=== PATIENT | male | born 1950 | race Caucasian/White ===

== ENCOUNTER → 2017-04-29 | Outpatient (CLI) | payer MEDICARE ==
[~2017-04-29] MED LIST: CETI10TA24 PO
[2017-04-29 09:13] LABS: ASPARTATE AMINO TRANSFERASE 18 U/L (15-37); BLOOD UREA NITROGEN 17 mg/dL (7-18)
== END | disposition home or self-care (01) ==
LOC: STAR 07:48
PROVIDERS: ATTEND Urology
DX: Z01.818 Encounter for other preprocedural examination (principal); C61 Malignant neoplasm of prostate
CPT/HCPCS: 36415; 80053; 81003; 85025; 87086; 93005

== ENCOUNTER 2017-05-07 05:46 | Inpatient (IN) | payer MEDICARE ==
[2017-04-29 08:13] VITALS: BP 137/80
[~2017-05-07] VITALS: Ht 177.8 cm; Wt 89.0 kg
[~2017-05-07 05:46] MED LIST changes: +FENTANYL PF 250 MCG/5ML ONE
[2017-05-07] MEDS ORDERED: LACTATED RINGERS 1,000 ML IV SCH (06:21)
[2017-05-07] MEDS ORDERED: KETAMINE 10 MG/ML, 20ML ONE (07:15)
[2017-05-07] MEDS ORDERED: MIDAZOLAM 1 MG/ML, 2ML ONE (07:15)
[2017-05-07] MEDS ORDERED: FENTANYL PF 250 MCG/5ML ONE (07:15)
[2017-05-07] MEDS ORDERED: BUPIVACAINE/PF-EPI 0.25% 1:200K ONE (07:17)
[2017-05-07] MEDS ORDERED: THROMBIN 5,000 UNIT VIAL TP ONE (07:17)
[2017-05-07] MEDS ORDERED: ALBUMIN HUMAN 5% 500 ML ONE (07:24)
[2017-05-07] MEDS ORDERED: GLYCOPYRROLATE 0.2MG/1ML ONE ×2 (07:33)
[2017-05-07] MEDS ORDERED: PHENYLEPHRINE 10 MG/ML ONE (07:33)
[2017-05-07] MEDS ORDERED: NEOSTIGMINE 1 MG/ML, 10ML ONE (07:33)
[2017-05-07] MEDS ORDERED: CEFAZOLIN 1,000 MG ONE ×2 (07:33)
[2017-05-07] MEDS ORDERED: ONDANSETRON 2MG/ML, 2ML ONE ×2 (07:33→15:02)
[2017-05-07] MEDS ORDERED: ESMOLOL 100 MG/10 ML ONE (07:33)
[2017-05-07] MEDS ORDERED: SUCCINYLCHOLINE 20 MG/ML, 10ML ONE (07:33)
[2017-05-07] MEDS ORDERED: METOPROLOL 1 MG/ML, 5ML ONE (07:33)
[2017-05-07] MEDS ORDERED: PROPOFOL 10 MG/ML, 20ML ONE (07:33)
[2017-05-07] MEDS ORDERED: DEXAMETHASONE 4 MG/ML, 1ML ONE (07:33)
[2017-05-07] MEDS ORDERED: ROCURONIUM 10 MG/ML ONE (07:33)
[2017-05-07] MEDS ORDERED: BUPIVACAINE/PF-EPI 0.25% 1:200K INFIL ONE (08:38)
[2017-05-07] MEDS ORDERED: HYDROmorphone 2 MG/ML, 1ML ONE ×2 (09:53→13:06)
[2017-05-07] MEDS ORDERED: OXYcodone 5 MG/5 ML ORAL.SOL UDC ONE (13:06)
[2017-05-07] MEDS ORDERED: FENTANYL PF 100 MCG/2ML ONE (13:06)
[2017-05-07] MEDS ORDERED: METOPROLOL 1 MG/ML, 5ML IV PRN (14:00)
[2017-05-07] MEDS ORDERED: FENTANYL PF 100 MCG/2ML IV PRN (14:00)
[2017-05-07] MEDS ORDERED: HYDROmorphone 1 MG/ML, 1ML IV PRN (14:00)
[2017-05-07] MEDS ORDERED: OXYcodone 5 MG/5 ML ORAL.SOL UDC PO PRN (14:00)
[2017-05-07] MEDS ORDERED: ACETAMINOPHEN 325 MG TABLET PO PRN (14:00)
[2017-05-07] MEDS ORDERED: PROMETHAZINE 25 MG/ML, 1ML IV PRN (14:00)
[2017-05-07] MEDS ORDERED: ACETAMINOPHEN 325 MG TABLET ONE (14:08)
[2017-05-07] MEDS ORDERED: ACETAMINOPHEN 650 MG/20.3 ML UDC ONE (14:08)
[2017-05-07] MEDS ORDERED: ONDANSETRON 2MG/ML, 2ML IV PRN (16:00)
[2017-05-07] MEDS ORDERED: TEMAZEPAM 15 MG CAPSULE PO PRN (16:00)
[2017-05-07] MEDS ORDERED: HYDROcodone/APAP 5/325 TABLET PO PRN (16:00)
[2017-05-07] MEDS ORDERED: morphine SULFATE 10 MG/ML, 1ML IV PRN (16:00)
[2017-05-07] MEDS ORDERED: OPIUM/BELLADONNA SUPP.RECT 16.2-30 MG PR PRN (16:00)
[2017-05-07] MEDS: KETOROLAC 30 MG/1 ML IV SCH ×2 (16:11→21:50)
[2017-05-07] MEDS: D5%-0.45NACL+KCL 20MEQ 1,000 ML IV SCH (16:11)
[2017-05-07] MEDS: CEFAZOLIN PMX 1GM/50ML 50 ML IVPB SCH (16:11)
[2017-05-07 20:53] VITALS: BP 136/85
[2017-05-07 23:49] VITALS: BP 130/81
[2017-05-08] MEDS: CEFAZOLIN PMX 1GM/50ML 50 ML IVPB SCH (00:24)
[2017-05-08] MEDS: D5%-0.45NACL+KCL 20MEQ 1,000 ML IV SCH ×2 (00:38→12:05)
[2017-05-08 04:00] VITALS: BP 122/78
[2017-05-08] MEDS: KETOROLAC 30 MG/1 ML IV SCH ×2 (04:06→11:15)
[2017-05-08 04:40] VITALS: BP 122/78
[2017-05-08 05:09] LABS: BLOOD UREA NITROGEN 11 mg/dL (7-18)
[2017-05-08] MEDS ORDERED: ENOXAPARIN 40 MG/0.4 ML SQ SCH (08:00)
[2017-05-08 08:55] VITALS: BP 112/64
[2017-05-08] MEDS ORDERED: CETIRIZINE 10 MG TABLET PO SCH (09:00)
[2017-05-08] MEDS ORDERED: IBUP-1222 PO (09:02)
[2017-05-08] MEDS ORDERED: HYDR-3240 PO (09:03)
[2017-05-08 13:15] VITALS: BP 108/73
== END 2017-05-08 13:09 | disposition home or self-care (01) | DRG 707 ==
LOC: ORIP 05:46 → 4NOR 15:21
PROVIDERS: ADMIT Urology; ATTEND Urology
PROC: 8E0W4CZ Robotic Assisted Procedure of Trunk Region, Percutaneous Endoscopic Approach (ICD-10-PCS; 2017-05-07)
PROC: 0DNS4ZZ (ICD-10-PCS; 2017-05-07)
PROC: 0VT04ZZ Resection of Prostate, Percutaneous Endoscopic Approach (ICD-10-PCS; principal; 2017-05-07 07:30)
DX: C61 Malignant neoplasm of prostate (principal); E44.1 Mild protein-calorie malnutrition; Z90.49 Acquired absence of other specified parts of digestive tract; Z82.49 Family history of ischemic heart disease and other diseases of the circulatory system; K66.0 Peritoneal adhesions (postprocedural) (postinfection)
CPT/HCPCS: 36415; 80048; 85014; 85018; 86850; 86900; 88305; 88309; C1729; J0690; J1100; J1170; J1650; J1885; J2250; J2405; J2704; J2710; J3010; J3490; P9045; C1760; J0330; J2370; J3480; J7120

== ENCOUNTER → 2017-05-14 | Outpatient (CLI) | payer MEDICARE ==
[~2017-05-14] MED LIST changes: +CYSTO CONRAY II 250 ML VIAL UR ONE; -FENTANYL PF 250 MCG/5ML ONE; +HYDR-3240 PO; +IBUP-1222 PO
== END | disposition home or self-care (01) ==
LOC: RAD 08:24
PROVIDERS: ATTEND Urology
DX: C61 Malignant neoplasm of prostate (principal)
CPT/HCPCS: 74430; Q9958